=== PATIENT | male | born 1960 | race Caucasian/White ===

== ENCOUNTER 2023-09-30 16:43 | Observation (INO) ==
[2023-09-30 18:56] LABS: ABS Lymphocytes 1.1 10^3/uL (1.0-4.8); ABS Monocytes 0.5 10^3/uL (0.0-1.1); Hematocrit 29.8 % (38-53); Hemoglobin 10.6 g/dL (13.2-16.3); Lymphocyte % 14.5 %; Mean Corpuscular Hemoglobin 38.4 pg (27-33); Mean Corpuscular Hgb Conc 35.5 g/dL (31-36); Mean Corpuscular Volume 108.1 fL (80-97); Mean Platelet Volume 9.8 fL (7.5-11.2); Nucleated Red Blood Cells % 0.1 %/100WBC (0.0-0.8); Platelet Count 208 10^3/uL (150-450); Red Blood Count 2.76 10^6/uL (4.06-5.63); Red Cell Distribution Width 13.8 % (12-17); White Blood Count 7.6 10^3/uL (3.6-10.2)
[2023-09-30 20:04] LABS: Albumin 2.9 g/dL (3.2-5.2); Albumin/Globulin Ratio 1.6 (1-3); Creatinine, Serum 1.27 mg/dL (0.67-1.17); Globulin 1.8 g/dL (2-4); Potassium 3.5 mmol/L (3.5-5.0); Total Bilirubin 4.4 mg/dL (0.2-1.0); Total Protein 4.7 g/dL (6.4-8.9); eGFR CKD-EPI 63.9 (>60)
[2023-09-30] MEDS: Lactated Ringers 1000 ml BAG 1,000 ML IV ONE (20:28)
[2023-09-30 22:27] LABS: Hepatitis B Surface Antigen Nonreactive (Nonreactive)
[2023-09-30 22:33] LABS: Hepatitis B Core IgM Nonreactive (Nonreactive)
[2023-09-30 22:45] LABS: Hepatitis C Antibody Negative (Negative)
[2023-09-30] MEDS: Tetan/Diph/Pertus SYR(Tdap) 0.5 ML SYR(BOOSTRIX) use SYR contains LATEX IM ONE (22:59)
[2023-09-30 23:01] LABS: Direct Bilirubin 2.6 mg/dL (0.03-0.18); Indirect Bilirubin 1.8 mg/dL (0.3-1.0); Magnesium 0.9 mg/dL (1.9-2.7)
[2023-09-30 23:16] LABS: INR 1.23 (0.83-1.13)
[2023-10-01] MEDS: Magnesium Sulf 4 GM/100 ML IV 4,000 MG/100 ML BAG IVPB ONE ×2 (00:04→09:31)
[2023-10-01] MEDS: Lactated Ringers 1000 ml BAG 1,000 ML IV SCH (00:08)
[2023-10-01 02:19] LABS: Folate 1.99 ng/mL (5.90-24.80)
[2023-10-01 06:27] LABS: Hepatitis A Ab IgM Negative (Negative)
[2023-10-01 08:22] LABS: Ferritin 1562.1 ng/mL (24-336)
[2023-10-01 08:40] LABS: ABS Lymphocytes 1.6 10^3/uL (1.0-4.8); ABS Monocytes 0.6 10^3/uL (0.0-1.1); ABS Neutrophils 4.9 10^3/uL (1.5-7.6); Eosinophil % 0.1 %; Hematocrit 30.5 % (38-53); Hemoglobin 10.6 g/dL (13.2-16.3); Lymphocyte % 22.4 %; Mean Corpuscular Hemoglobin 37.6 pg (27-33); Mean Corpuscular Hgb Conc 34.8 g/dL (31-36); Mean Corpuscular Volume 108.1 fL (80-97); Mean Platelet Volume 9.5 fL (7.5-11.2); Platelet Count 197 10^3/uL (150-450); Red Blood Count 2.82 10^6/uL (4.06-5.63); White Blood Count 7.1 10^3/uL (3.6-10.2)
[2023-10-01 08:42] LABS: Albumin 2.8 g/dL (3.2-5.2); Albumin/Globulin Ratio 1.6 (1-3); Calcium 8.3 mg/dL (8.6-10.3); Creatinine, Serum 0.95 mg/dL (0.67-1.17); Globulin 1.7 g/dL (2-4); Potassium 3.9 mmol/L (3.5-5.0); Total Bilirubin 3.5 mg/dL (0.2-1.0); Total Protein 4.5 g/dL (6.4-8.9); eGFR CKD-EPI 90.5 (>60)
[2023-10-01] MEDS: Potassium Chlor 20 meq TAB.ER PO ONE (09:28)
[2023-10-01 10:51] LABS: TSH Ultra Thyroid Stim Horm 4.29 mcIU/mL (0.34-5.60)
[2023-10-01] MEDS: Multivitamins/Minerals TAB PO SCH (10:51)
[2023-10-01] MEDS: Thiamine 100 MG/ML 2 ml VIAL (200 mg) IM ONE (11:05)
[2023-10-01] MEDS: NS 0.9% 1000 ml BAG 1,000 ML IV SCH (15:27)
[2023-10-01] MEDS: Enoxaparin 40 MG/0.4 ML SYR SUBCUT SCH (19:54)
[2023-10-01] MEDS: Psyllium PAK PO SCH (23:09)
[2023-10-02] MEDS: Sulfur Hexaflouride MICROSPHR 25 MG VIAL IV ONE (07:21)
[2023-10-02 07:29] LABS: Albumin 2.3 g/dL (3.2-5.2); Albumin/Globulin Ratio 1.4 (1-3); Calcium 7.8 mg/dL (8.6-10.3); Creatinine, Serum 0.66 mg/dL (0.67-1.17); Globulin 1.6 g/dL (2-4); Magnesium 1.4 mg/dL (1.9-2.7); Potassium 3.7 mmol/L (3.5-5.0); Total Bilirubin 2.9 mg/dL (0.2-1.0); Total Protein 3.9 g/dL (6.4-8.9)
[2023-10-02] MEDS: Magnesium Sulf 4 GM/100 ML IV 4,000 MG/100 ML BAG IVPB ONE (09:21)
[2023-10-02] MEDS: Potassium Chlor 20 meq TAB.ER PO ONE (09:21)
[2023-10-02 14:08] VITALS: BP 118/72
== END 2023-10-02 14:53 | disposition home or self-care (01) ==
LOC: ED 16:43 → EDHOLD 16:43 → SUATTDRO 23:10 → MEDTELE 10-01 16:14
PROVIDERS: ADMIT Internal Medicine; ATTEND Internal Medicine